=== PATIENT | female | born 1950 | race Caucasian/White ===

== ENCOUNTER 2017-01-31 11:26 | Inpatient (IN) ==
[2017-01-31] MEDS ORDERED: FUROSEMIDE 100 MG/10 ML VIAL IV STA (12:45)
[2017-01-31] MEDS ORDERED: ALBUTEROL/IPRATROPIUM 3 ML NEB RESP TX STA (12:45)
[2017-01-31] MEDS ORDERED: ONDANSETRON 4 MG/2 ML VIAL IV STA (12:45)
[2017-01-31] MEDS ORDERED: NITROGLYCERIN 2% OINT 1 INCH/GM PACK TOP STA (12:45)
[2017-01-31] MEDS ORDERED: MORPHINE 2 MG/1 ML SYRINGE IV STA (12:45)
[2017-01-31 13:13] LABS: Basophils # 0.1 10*3/uL (0.0-0.2); Basophils % 0.6 % (0.0-0.8); Eosinophils # 0.3 10*3/uL (0.0-0.87); Eosinophils % 3.1 % (0.00-10.9); Hematocrit 32.5 VOL% (35.7-47.0); Hemoglobin 10.7 GM/DL (12.0-16.0); Immature Granulocytes % 0.5 %; Immature Granulocytes Absolute 0.04 #; Lymphocytes # 2.9 10*3/uL (1.4-4.0); Lymphocytes % 32.6 % (21.3-54.2); Mean Corpuscular HGB Conc 32.9 GM/DL (32-36); Mean Corpuscular Hemoglobin 29 PG (27-34); Mean Corpuscular Volume 88.1 FL (87-102); Mean Platelet Volume 10.4 FL (9.6-12.0); Monocytes # 0.5 10*3/uL (0.11-0.8); Monocytes % 5.8 % (1.7-12.7); Neutrophils # 5.1 10*3/uL (1.4-7.4); Neutrophils % 57.4 % (38.7-73.9); Platelet Count 204 T/CUMM (130-400); Red Blood Count 3.69 MC/CUMM (3.8-5.5); Red Cell Distribution Width 14.5 % (9.3-17.3); White Blood Count 8.8 T/CUMM (4-12)
[2017-01-31 13:19] LABS: PT Patient Result 10.7 SECS
[2017-01-31] MEDS ORDERED: MORPHINE 2 MG/1 ML SYRINGE ONE (13:42)
[2017-01-31] MEDS ORDERED: NITROGLYCERIN 2% OINT 1 INCH/GM PACK TOP ONE (13:42)
[2017-01-31] MEDS ORDERED: FUROSEMIDE 20 MG/2 ML VIAL ONE (13:42)
[2017-01-31] MEDS ORDERED: ONDANSETRON 4 MG/2 ML VIAL ONE (13:42)
[2017-01-31 13:43] LABS: Albumin 3.7 G/DL (3.4-5.0); Bilirubin,Total 0.5 MG/DL (0.2-1.0); Calcium 8.8 MG/DL (8.5-10.1); Magnesium 2.4 MG/DL (1.8-2.4); Osmolality,Calculated 302.4 MOS/KG (273-304); Potassium 4.8 MMOL/L (3.5-5.1); Total Protein 6.6 G/DL (6.4-8.3); Troponin I Only 0.02 NG/ML (0.00-0.045)
[2017-01-31] MEDS ORDERED: ONDANSETRON 4 MG/2 ML VIAL IV PRN (14:39)
[2017-01-31] MEDS ORDERED: diphenhydrAMINE CAP 25 MG CAPSULE PO PRN (14:39)
[2017-01-31] MEDS ORDERED: DOCUSATE SODIUM 100 MG CAPSULE PO PRN (14:39)
[2017-01-31] MEDS ORDERED: ACETAMINOPHEN 325 MG TABLET PO PRN (14:39)
[2017-01-31] MEDS ORDERED: MORPHINE 2 MG/1 ML SYRINGE IV PRN (14:39)
[2017-01-31] MEDS ORDERED: guaiFENesin/DM ER 600-30 MG TABLET PO PRN (14:39)
[2017-01-31] MEDS ORDERED: GLUCAGON 1 MG VIAL IM PRN (14:59)
[2017-01-31] MEDS ORDERED: DEXTROSE 50% 25 GM/50 ML VIAL IV PRN (14:59)
[2017-01-31] MEDS ORDERED: PANTOPRAZOLE 40 MG TABLET PO ONE (15:14)
[2017-01-31] MEDS: PANTOPRAZOLE 40 MG TABLET PO SCH (15:16)
[2017-01-31] MEDS ORDERED: AZITHROMYCIN 250 MG TABLET ONE (17:03)
[2017-01-31] MEDS: AZITHROMYCIN 250 MG TABLET PO SCH (17:05)
[2017-01-31] MEDS: SEVELAMER CARBONATE 800 MG TABLET PO SCH (18:44)
[2017-01-31] MEDS: INSULIN LISPRO 100 UNIT/ML SUBCUT SCH (18:44)
[2017-01-31] MEDS: NEBIVOLOL 5 MG TABLET PO SCH (18:44)
[2017-01-31] MEDS: ASPIRIN EC 81 MG TABLET PO SCH (18:44)
[2017-01-31] MEDS: predniSONE 50 MG TABLET PO SCH ×2 (18:45→23:05)
[2017-01-31] MEDS ORDERED: NIFEdipine 10 MG CAPSULE PO PRN (18:49)
[2017-01-31] MEDS ORDERED: hydrALAZINE 25 MG TABLET PO PRN (19:43)
[2017-01-31] MEDS: ATORVASTATIN 20 MG TABLET PO SCH (20:23)
[2017-01-31] MEDS: ESCITALOPRAM 10 MG TABLET PO SCH (20:23)
[2017-01-31] MEDS: ENOXAPARIN 30 MG/0.3 ML SYRINGE SUBCUT SCH (20:24)
[2017-02-01] MEDS ORDERED: diphenhydrAMINE CAP 50 MG CAPSULE PO ONE (06:00)
[2017-02-01 06:09] LABS: Basophils % 0.4 % (0.0-0.8); Eosinophils % 0.2 % (0.00-10.9); Hematocrit 33.8 VOL% (35.7-47.0); Hemoglobin 10.9 GM/DL (12.0-16.0); Immature Granulocytes % 1.9 %; Lymphocytes # 0.9 10*3/uL (1.4-4.0); Lymphocytes % 17.9 % (21.3-54.2); Mean Corpuscular HGB Conc 32.2 GM/DL (32-36); Mean Corpuscular Hemoglobin 28 PG (27-34); Mean Corpuscular Volume 87.3 FL (87-102); Mean Platelet Volume 10.8 FL (9.6-12.0); Monocytes # 0.1 10*3/uL (0.11-0.8); Monocytes % 1.1 % (1.7-12.7); Neutrophils # 4.1 10*3/uL (1.4-7.4); Neutrophils % 78.5 % (38.7-73.9); Platelet Count 187 T/CUMM (130-400); Red Blood Count 3.87 MC/CUMM (3.8-5.5); Red Cell Distribution Width 14.6 % (9.3-17.3); White Blood Count 5.2 T/CUMM (4-12)
[2017-02-01] MEDS: predniSONE 50 MG TABLET PO SCH (06:31)
[2017-02-01 06:43] LABS: Calcium 8.6 MG/DL (8.5-10.1); Magnesium 2.5 MG/DL (1.8-2.4); Osmolality,Calculated 310.4 MOS/KG (273-304)
[2017-02-01 06:47] LABS: Potassium 6.3 MMOL/L (3.5-5.1)
[2017-02-01] MEDS ORDERED: SODIUM POLYSTYRENE SULFATE 15 GM/60 ML BOTTLE RECTAL ONE (07:00)
[2017-02-01] MEDS ORDERED: SODIUM CHLORIDE 0.45% 1,000 ML IV SCH (08:00)
[2017-02-01] MEDS ORDERED: amLODIPine 10 MG TABLET PO SCH (09:00)
[2017-02-01] MEDS ORDERED: HEPARIN 5,000 UNIT/1 ML VIAL ONE (09:32)
[2017-02-01] MEDS: SEVELAMER CARBONATE 800 MG TABLET PO SCH ×3 (11:42→18:43)
[2017-02-01] MEDS: INSULIN LISPRO 100 UNIT/ML SUBCUT SCH ×2 (11:42→16:12)
[2017-02-01] MEDS: DOCUSATE/SENNA 50-8.6 MG TABLET PO SCH (11:57)
[2017-02-01] MEDS: MULTIVITAMIN (CENTRUM) TABLET PO SCH (11:57)
[2017-02-01] MEDS: PANTOPRAZOLE 40 MG TABLET PO SCH (11:57)
[2017-02-01] MEDS: AZITHROMYCIN 250 MG TABLET PO SCH (11:58)
[2017-02-01] MEDS: NEBIVOLOL 5 MG TABLET PO SCH (18:43)
[2017-02-01] MEDS: ASPIRIN EC 81 MG TABLET PO SCH (18:43)
[2017-02-01] MEDS: ATORVASTATIN 20 MG TABLET PO SCH (20:44)
[2017-02-01] MEDS: ESCITALOPRAM 10 MG TABLET PO SCH (20:44)
[2017-02-01] MEDS: ENOXAPARIN 30 MG/0.3 ML SYRINGE SUBCUT SCH (20:45)
[2017-02-02] MEDS: INSULIN LISPRO 100 UNIT/ML SUBCUT SCH (08:12)
[2017-02-02] MEDS: SEVELAMER CARBONATE 800 MG TABLET PO SCH ×2 (10:47→12:45)
[2017-02-02] MEDS: MULTIVITAMIN (CENTRUM) TABLET PO SCH (10:47)
[2017-02-02] MEDS: AZITHROMYCIN 250 MG TABLET PO SCH (10:48)
[2017-02-02] MEDS: DOCUSATE/SENNA 50-8.6 MG TABLET PO SCH (10:48)
[2017-02-02] MEDS: PANTOPRAZOLE 40 MG TABLET PO SCH (10:48)
[2017-02-02 15:10] VITALS: BP 183/68
== END 2017-02-02 15:00 | disposition home or self-care (01) | DRG 252 ==
LOC: N.ED 11:26 → N.EDINP 14:17 → N.5E 18:06

== ENCOUNTER 2018-04-01 13:42 | Inpatient (IN) ==
[2018-04-01 14:56] LABS: Basophils # 0.1 10*3/uL (0.0-0.2); Basophils % 0.8 % (0.0-0.8); Eosinophils # 0.3 10*3/uL (0.0-0.87); Eosinophils % 4.1 % (0.00-10.9); Hematocrit 29.5 VOL% (35.7-47.0); Hemoglobin 9.2 GM/DL (12.0-16.0); Immature Granulocytes % 0.5 %; Immature Granulocytes Absolute 0.03 #; Lymphocytes # 1.1 10*3/uL (1.4-4.0); Lymphocytes % 17.6 % (21.3-54.2); Mean Corpuscular HGB Conc 31.2 GM/DL (32-36); Mean Corpuscular Hemoglobin 29 PG (27-34); Mean Corpuscular Volume 93.7 FL (87-102); Mean Platelet Volume 11.5 FL (9.6-12.0); Monocytes # 0.6 10*3/uL (0.11-0.8); Monocytes % 8.9 % (1.7-12.7); Neutrophils # 4.3 10*3/uL (1.4-7.4); Neutrophils % 68.1 % (38.7-73.9); Platelet Count 107 T/CUMM (130-400); Red Blood Count 3.15 MC/CUMM (3.8-5.5); Red Cell Distribution Width 17.6 % (9.3-17.3); White Blood Count 6.3 T/CUMM (4-12)
[2018-04-01 15:17] LABS: Albumin 3.6 G/DL (3.4-5.0); Calcium 9.2 MG/DL (8.5-10.1); Potassium 4.3 MMOL/L (3.5-5.1); Total Protein 7.5 G/DL (6.4-8.3)
[2018-04-01] MEDS ORDERED: CEFTAROLINE 600 MG in SODIUM CHLORIDE 0.9% 100 ML IV STA (15:27)
[2018-04-01] MEDS ORDERED: ACETAMINOPHEN 325 MG TABLET PO PRN (16:04)
[2018-04-01] MEDS ORDERED: ONDANSETRON 4 MG/2 ML VIAL IV PRN (16:04)
[2018-04-01] MEDS ORDERED: DEXTROSE 50% 25 GM/50 ML VIAL IV PRN ×2 (16:04)
[2018-04-01] MEDS ORDERED: GLUCAGON 1 MG VIAL IM PRN ×2 (16:04)
[2018-04-01] MEDS ORDERED: DOCUSATE/SENNA 50-8.6 MG TABLET PO PRN (16:13)
[2018-04-01] MEDS ORDERED: POLYETHYLENE GLYCOL POWDER 17 GM PACK PO PRN (16:13)
[2018-04-01] MEDS ORDERED: EPOETIN ALFA 10,000 UNIT/1 ML VIAL IV PRN (16:13)
[2018-04-01] MEDS ORDERED: ONDANSETRON 4 MG TABLET PO PRN (16:13)
[2018-04-01] MEDS ORDERED: hydrALAZINE 20 MG/1 ML VIAL IV STA (16:43)
[2018-04-01] MEDS: INSULIN REGULAR 100 UNIT/ML SUBCUT SCH ×2 (18:45→20:57)
[2018-04-01] MEDS: SEVELAMER CARBONATE 800 MG TABLET PO SCH (19:00)
[2018-04-01] MEDS: NEBIVOLOL 5 MG TABLET PO SCH (20:54)
[2018-04-01] MEDS: ATORVASTATIN 20 MG TABLET PO SCH (20:55)
[2018-04-01] MEDS: ASPIRIN EC 81 MG TABLET PO SCH (20:55)
[2018-04-01] MEDS: ESCITALOPRAM 10 MG TABLET PO SCH (20:55)
[2018-04-02] MEDS ORDERED: CEFTAROLINE 200 MG in SODIUM CHLORIDE 0.9% 100 ML IV SCH (04:00)
[2018-04-02 05:02] LABS: Basophils % 0.8 % (0.0-0.8); Eosinophils # 0.4 10*3/uL (0.0-0.87); Eosinophils % 7.4 % (0.00-10.9); Hematocrit 29.3 VOL% (35.7-47.0); Immature Granulocytes % 0.6 %; Immature Granulocytes Absolute 0.03 #; Lymphocytes # 0.9 10*3/uL (1.4-4.0); Lymphocytes % 18.2 % (21.3-54.2); Mean Corpuscular HGB Conc 30.7 GM/DL (32-36); Mean Corpuscular Hemoglobin 29 PG (27-34); Mean Corpuscular Volume 94.8 FL (87-102); Mean Platelet Volume 11.6 FL (9.6-12.0); Monocytes # 0.4 10*3/uL (0.11-0.8); Monocytes % 8.9 % (1.7-12.7); Neutrophils % 64.1 % (38.7-73.9); Platelet Count 104 T/CUMM (130-400); Red Blood Count 3.09 MC/CUMM (3.8-5.5); Red Cell Distribution Width 17.9 % (9.3-17.3); White Blood Count 4.7 T/CUMM (4-12)
[2018-04-02 05:32] LABS: Albumin 3.4 G/DL (3.4-5.0); Bilirubin,Total 0.8 MG/DL (0.2-1.0); Osmolality,Calculated 286.7 MOS/KG (273-304); Potassium 4.6 MMOL/L (3.5-5.1); Total Protein 6.8 G/DL (6.4-8.3)
[2018-04-02] MEDS: INSULIN REGULAR 100 UNIT/ML SUBCUT SCH ×4 (07:57→21:43)
[2018-04-02] MEDS: PANTOPRAZOLE 40 MG TABLET PO SCH (08:35)
[2018-04-02] MEDS ORDERED: amLODIPine 5 MG TABLET PO SCH (09:00)
[2018-04-02] MEDS: hydrALAZINE 25 MG TABLET PO SCH ×4 (10:31→21:43)
[2018-04-02] MEDS ORDERED: ceFAZolin 1,000 MG in SYRINGE 1 EACH IV ONE (11:00)
[2018-04-02] MEDS: SEVELAMER CARBONATE 800 MG TABLET PO SCH ×3 (11:59→18:59)
[2018-04-02] MEDS: MULTIVITAMIN (BEROCCA) TABLET PO SCH (12:00)
[2018-04-02] MEDS ORDERED: HEPARIN 5,000 UNIT/1 ML VIAL ONE (12:46)
[2018-04-02] MEDS ORDERED: LIDOCAINE 1%/EPI INJ 20 ML VIAL ONE (12:46)
[2018-04-02] MEDS ORDERED: PROPOFOL 200 MG/20 ML VIAL IV ONE (14:32)
[2018-04-02] MEDS ORDERED: MIDAZOLAM 2 MG/2 ML VIAL ONE (14:33)
[2018-04-02] MEDS ORDERED: fentaNYL 100 MCG/2 ML VIAL ONE (14:33)
[2018-04-02] MEDS ORDERED: SODIUM CHLORIDE 0.9% 250 ML IV ONE (14:34)
[2018-04-02] MEDS ORDERED: KETAMINE 500 MG/10 ML VIAL ONE (14:34)
[2018-04-02] MEDS ORDERED: TUBERCULIN SKIN TEST 0.1 ML SYRINGE INTRADERM ONE (17:09)
[2018-04-02] MEDS: ATORVASTATIN 20 MG TABLET PO SCH (21:43)
[2018-04-02] MEDS: ASPIRIN EC 81 MG TABLET PO SCH (21:43)
[2018-04-02] MEDS: ESCITALOPRAM 10 MG TABLET PO SCH (21:43)
[2018-04-02] MEDS: NEBIVOLOL 5 MG TABLET PO SCH (21:43)
[2018-04-03] MEDS ORDERED: hydrALAZINE 20 MG/1 ML VIAL IV PRN (01:08)
[2018-04-03] MEDS ORDERED: ACETAMINOPHEN 650 MG SUPP RECTAL PRN (04:18)
[2018-04-03 06:50] LABS: Basophils % 0.4 % (0.0-0.8); Hemoglobin 8.4 GM/DL (12.0-16.0); Immature Granulocytes % 1.1 %; Immature Granulocytes Absolute 0.06 #; Lymphocytes # 0.8 10*3/uL (1.4-4.0); Lymphocytes % 13.7 % (21.3-54.2); Mean Corpuscular HGB Conc 31.1 GM/DL (32-36); Mean Corpuscular Hemoglobin 29 PG (27-34); Mean Corpuscular Volume 94.1 FL (87-102); Mean Platelet Volume 11.7 FL (9.6-12.0); Monocytes # 0.3 10*3/uL (0.11-0.8); Monocytes % 5.1 % (1.7-12.7); Neutrophils # 4.5 10*3/uL (1.4-7.4); Neutrophils % 79.7 % (38.7-73.9); Platelet Count 113 T/CUMM (130-400); Red Blood Count 2.87 MC/CUMM (3.8-5.5); Red Cell Distribution Width 17.6 % (9.3-17.3); White Blood Count 5.6 T/CUMM (4-12)
[2018-04-03] MEDS ORDERED: VANCOMYCIN INJ 2,500 MG in SODIUM CHLORIDE 0.9% 500 ML IV ONE (09:00)
[2018-04-03] MEDS: PIPERACILLIN/TAZOBACTAM 3,375 MG in SODIUM CHLORIDE 0.9% 100 ML IV SCH ×3 (10:27→23:31)
[2018-04-03] MEDS ORDERED: cloNIDine 0.2 MG/24 HR PATCH TRANSDERM SCH (10:30)
[2018-04-03] MEDS: SEVELAMER CARBONATE 800 MG TABLET PO SCH ×3 (10:34→17:36)
[2018-04-03] MEDS: MULTIVITAMIN (BEROCCA) TABLET PO SCH (10:34)
[2018-04-03] MEDS: hydrALAZINE 25 MG TABLET PO SCH ×4 (10:34→21:39)
[2018-04-03] MEDS: amLODIPine 10 MG TABLET PO SCH (10:34)
[2018-04-03] MEDS: INSULIN REGULAR 100 UNIT/ML SUBCUT SCH ×4 (10:34→21:42)
[2018-04-03] MEDS: PANTOPRAZOLE 40 MG TABLET PO SCH (10:34)
[2018-04-03 10:36] LABS: Calcium 8.2 MG/DL (8.5-10.1); Osmolality,Calculated 293.8 MOS/KG (273-304)
[2018-04-03] MEDS ORDERED: HEPARIN 10,000 UNIT/10 ML VIAL IV PRN (16:09)
[2018-04-03] MEDS: NEBIVOLOL 5 MG TABLET PO SCH (21:39)
[2018-04-03] MEDS: ESCITALOPRAM 10 MG TABLET PO SCH (21:39)
[2018-04-03] MEDS: ATORVASTATIN 20 MG TABLET PO SCH (21:39)
[2018-04-03] MEDS: ASPIRIN EC 81 MG TABLET PO SCH (21:39)
[2018-04-04] MEDS ORDERED: VANCOMYCIN INJ 750 MG in SODIUM CHLORIDE 0.9% 250 ML IV PRN (07:53)
[2018-04-04] MEDS: SEVELAMER CARBONATE 800 MG TABLET PO SCH ×3 (10:38→18:18)
[2018-04-04] MEDS: INSULIN REGULAR 100 UNIT/ML SUBCUT SCH ×4 (10:38→21:33)
[2018-04-04] MEDS: PANTOPRAZOLE 40 MG TABLET PO SCH (10:38)
[2018-04-04] MEDS: MULTIVITAMIN (BEROCCA) TABLET PO SCH (10:38)
[2018-04-04] MEDS: hydrALAZINE 25 MG TABLET PO SCH ×6 (10:38→21:28)
[2018-04-04] MEDS: amLODIPine 10 MG TABLET PO SCH (10:39)
[2018-04-04] MEDS: PIPERACILLIN/TAZOBACTAM 3,375 MG in SODIUM CHLORIDE 0.9% 100 ML IV SCH ×2 (10:42→21:32)
[2018-04-04] MEDS: ASPIRIN EC 81 MG TABLET PO SCH (21:28)
[2018-04-04] MEDS: ESCITALOPRAM 10 MG TABLET PO SCH (21:28)
[2018-04-04] MEDS: ATORVASTATIN 20 MG TABLET PO SCH (21:28)
[2018-04-04] MEDS: NEBIVOLOL 5 MG TABLET PO SCH (21:28)
[2018-04-05 05:43] LABS: Basophils % 0.9 % (0.0-0.8); Eosinophils # 0.4 10*3/uL (0.0-0.87); Eosinophils % 7.7 % (0.00-10.9); Hematocrit 27.2 VOL% (35.7-47.0); Hemoglobin 8.4 GM/DL (12.0-16.0); Immature Granulocytes % 0.4 %; Immature Granulocytes Absolute 0.02 #; Lymphocytes # 0.9 10*3/uL (1.4-4.0); Lymphocytes % 18.4 % (21.3-54.2); Mean Corpuscular HGB Conc 30.9 GM/DL (32-36); Mean Corpuscular Hemoglobin 29 PG (27-34); Mean Corpuscular Volume 93.5 FL (87-102); Mean Platelet Volume 11.5 FL (9.6-12.0); Monocytes # 0.5 10*3/uL (0.11-0.8); Monocytes % 9.6 % (1.7-12.7); Platelet Count 116 T/CUMM (130-400); Red Blood Count 2.91 MC/CUMM (3.8-5.5); Red Cell Distribution Width 16.8 % (9.3-17.3); White Blood Count 4.7 T/CUMM (4-12)
[2018-04-05 06:04] LABS: Calcium 8.2 MG/DL (8.5-10.1); Osmolality,Calculated 285.4 MOS/KG (273-304); Potassium 5.1 MMOL/L (3.5-5.1)
[2018-04-05] MEDS: SEVELAMER CARBONATE 800 MG TABLET PO SCH ×3 (08:30→17:19)
[2018-04-05] MEDS: amLODIPine 10 MG TABLET PO SCH (08:30)
[2018-04-05] MEDS: PIPERACILLIN/TAZOBACTAM 3,375 MG in SODIUM CHLORIDE 0.9% 100 ML IV SCH ×2 (08:30→22:18)
[2018-04-05] MEDS: INSULIN REGULAR 100 UNIT/ML SUBCUT SCH ×4 (08:30→22:14)
[2018-04-05] MEDS: MULTIVITAMIN (BEROCCA) TABLET PO SCH (08:30)
[2018-04-05] MEDS: PANTOPRAZOLE 40 MG TABLET PO SCH (08:30)
[2018-04-05] MEDS: hydrALAZINE 25 MG TABLET PO SCH ×3 (08:30→22:13)
[2018-04-05] MEDS ORDERED: VANCOMYCIN INJ 750 MG in SODIUM CHLORIDE 0.9% 250 ML IV ONE (15:00)
[2018-04-05] MEDS: NEBIVOLOL 5 MG TABLET PO SCH (22:13)
[2018-04-05] MEDS: ESCITALOPRAM 10 MG TABLET PO SCH (22:13)
[2018-04-05] MEDS: ASPIRIN EC 81 MG TABLET PO SCH (22:13)
[2018-04-05] MEDS: ATORVASTATIN 20 MG TABLET PO SCH (22:13)
[2018-04-06 05:35] LABS: Basophils % 0.6 % (0.0-0.8); Eosinophils # 0.3 10*3/uL (0.0-0.87); Eosinophils % 6.1 % (0.00-10.9); Hematocrit 27.1 VOL% (35.7-47.0); Hemoglobin 8.5 GM/DL (12.0-16.0); Immature Granulocytes % 0.6 %; Immature Granulocytes Absolute 0.03 #; Lymphocytes # 0.8 10*3/uL (1.4-4.0); Lymphocytes % 15.9 % (21.3-54.2); Mean Corpuscular HGB Conc 31.4 GM/DL (32-36); Mean Corpuscular Hemoglobin 29 PG (27-34); Mean Corpuscular Volume 92.2 FL (87-102); Mean Platelet Volume 11.2 FL (9.6-12.0); Monocytes # 0.5 10*3/uL (0.11-0.8); Monocytes % 9.1 % (1.7-12.7); Neutrophils # 3.3 10*3/uL (1.4-7.4); Neutrophils % 67.7 % (38.7-73.9); Platelet Count 119 T/CUMM (130-400); Red Blood Count 2.94 MC/CUMM (3.8-5.5); Red Cell Distribution Width 16.5 % (9.3-17.3); White Blood Count 4.9 T/CUMM (4-12)
[2018-04-06 05:57] LABS: Calcium 8.4 MG/DL (8.5-10.1); Osmolality,Calculated 278.4 MOS/KG (273-304); Potassium 4.3 MMOL/L (3.5-5.1)
[2018-04-06] MEDS: SEVELAMER CARBONATE 800 MG TABLET PO SCH ×3 (09:20→16:53)
[2018-04-06] MEDS: MULTIVITAMIN (BEROCCA) TABLET PO SCH (09:21)
[2018-04-06] MEDS: PANTOPRAZOLE 40 MG TABLET PO SCH (09:21)
[2018-04-06] MEDS: amLODIPine 10 MG TABLET PO SCH (09:21)
[2018-04-06] MEDS: INSULIN REGULAR 100 UNIT/ML SUBCUT SCH ×4 (09:21→22:10)
[2018-04-06] MEDS: PIPERACILLIN/TAZOBACTAM 3,375 MG in SODIUM CHLORIDE 0.9% 100 ML IV SCH ×2 (09:21→17:58)
[2018-04-06] MEDS: hydrALAZINE 25 MG TABLET PO SCH (09:21)
[2018-04-06] MEDS ORDERED: LEVOFLOXACIN 500 MG TABLET PO SCH (17:00)
[2018-04-06] MEDS: ESCITALOPRAM 10 MG TABLET PO SCH (22:07)
[2018-04-06] MEDS: NEBIVOLOL 5 MG TABLET PO SCH (22:07)
[2018-04-06] MEDS: ATORVASTATIN 20 MG TABLET PO SCH (22:07)
[2018-04-06] MEDS: ASPIRIN EC 81 MG TABLET PO SCH (22:10)
[2018-04-07] MEDS: PIPERACILLIN/TAZOBACTAM 3,375 MG in SODIUM CHLORIDE 0.9% 100 ML IV SCH ×3 (00:09→22:16)
[2018-04-07 05:27] LABS: Basophils % 0.6 % (0.0-0.8); Eosinophils # 0.3 10*3/uL (0.0-0.87); Eosinophils % 4.6 % (0.00-10.9); Hematocrit 26.3 VOL% (35.7-47.0); Hemoglobin 8.4 GM/DL (12.0-16.0); Immature Granulocytes % 0.4 %; Immature Granulocytes Absolute 0.02 #; Lymphocytes # 0.9 10*3/uL (1.4-4.0); Lymphocytes % 15.7 % (21.3-54.2); Mean Corpuscular HGB Conc 31.9 GM/DL (32-36); Mean Corpuscular Hemoglobin 29 PG (27-34); Mean Platelet Volume 11.2 FL (9.6-12.0); Monocytes # 0.5 10*3/uL (0.11-0.8); Monocytes % 8.5 % (1.7-12.7); Neutrophils # 3.8 10*3/uL (1.4-7.4); Neutrophils % 70.2 % (38.7-73.9); Platelet Count 120 T/CUMM (130-400); Red Blood Count 2.86 MC/CUMM (3.8-5.5); Red Cell Distribution Width 16.2 % (9.3-17.3); White Blood Count 5.4 T/CUMM (4-12)
[2018-04-07 05:45] LABS: Calcium 8.4 MG/DL (8.5-10.1); Osmolality,Calculated 277.7 MOS/KG (273-304); Potassium 4.6 MMOL/L (3.5-5.1)
[2018-04-07] MEDS ORDERED: FAMOTIDINE 20 MG/2 ML VIAL IV ONE ×2 (08:36→08:38)
[2018-04-07] MEDS ORDERED: LIDOCAINE 1%/EPI INJ 20 ML VIAL ONE (08:38)
[2018-04-07] MEDS ORDERED: SODIUM CHLORIDE 0.9% 250 ML IV SCH (09:00)
[2018-04-07] MEDS ORDERED: TUBERCULIN SKIN TEST 0.1 ML SYRINGE INTRADERM ONE (09:15)
[2018-04-07] MEDS ORDERED: PROPOFOL 200 MG/20 ML VIAL IV ONE (09:45)
[2018-04-07] MEDS ORDERED: fentaNYL 100 MCG/2 ML VIAL ONE (09:46)
[2018-04-07] MEDS ORDERED: MIDAZOLAM 2 MG/2 ML VIAL ONE (09:46)
[2018-04-07] MEDS ORDERED: SODIUM CHLORIDE 0.9% 100 ML IV ONE (09:46)
[2018-04-07] MEDS ORDERED: ONDANSETRON 4 MG/2 ML VIAL ONE (09:46)
[2018-04-07] MEDS ORDERED: LISINOPRIL 10 MG TABLET PO SCH (12:00)
[2018-04-07] MEDS: INSULIN REGULAR 100 UNIT/ML SUBCUT SCH ×4 (12:01→22:16)
[2018-04-07] MEDS: PANTOPRAZOLE 40 MG TABLET PO SCH (12:14)
[2018-04-07] MEDS: MULTIVITAMIN (BEROCCA) TABLET PO SCH (12:14)
[2018-04-07] MEDS: amLODIPine 10 MG TABLET PO SCH (12:14)
[2018-04-07] MEDS: SEVELAMER CARBONATE 800 MG TABLET PO SCH ×3 (12:17→16:53)
[2018-04-07] MEDS: DOXAZOSIN 1 MG TABLET PO SCH (22:14)
[2018-04-07] MEDS: NEBIVOLOL 5 MG TABLET PO SCH (22:15)
[2018-04-07] MEDS: ESCITALOPRAM 10 MG TABLET PO SCH (22:15)
[2018-04-07] MEDS: ASPIRIN EC 81 MG TABLET PO SCH (22:15)
[2018-04-07] MEDS: ATORVASTATIN 20 MG TABLET PO SCH (22:15)
[2018-04-07] MEDS: LISINOPRIL 10 MG TABLET PO SCH (22:16)
[2018-04-08 05:12] LABS: Basophils % 0.5 % (0.0-0.8); Eosinophils # 0.3 10*3/uL (0.0-0.87); Eosinophils % 4.9 % (0.00-10.9); Hematocrit 25.6 VOL% (35.7-47.0); Immature Granulocytes % 0.3 %; Immature Granulocytes Absolute 0.02 #; Lymphocytes # 0.9 10*3/uL (1.4-4.0); Lymphocytes % 14.7 % (21.3-54.2); Mean Corpuscular HGB Conc 31.3 GM/DL (32-36); Mean Corpuscular Hemoglobin 29 PG (27-34); Mean Corpuscular Volume 93.1 FL (87-102); Mean Platelet Volume 11.6 FL (9.6-12.0); Monocytes # 0.5 10*3/uL (0.11-0.8); Monocytes % 8.6 % (1.7-12.7); Neutrophils # 4.3 10*3/uL (1.4-7.4); Platelet Count 117 T/CUMM (130-400); Red Blood Count 2.75 MC/CUMM (3.8-5.5); Red Cell Distribution Width 16.5 % (9.3-17.3); White Blood Count 6.1 T/CUMM (4-12)
[2018-04-08 05:42] LABS: Calcium 8.8 MG/DL (8.5-10.1); Osmolality,Calculated 281.5 MOS/KG (273-304); Potassium 5.2 MMOL/L (3.5-5.1)
[2018-04-08] MEDS: INSULIN REGULAR 100 UNIT/ML SUBCUT SCH ×4 (08:39→21:39)
[2018-04-08] MEDS: PANTOPRAZOLE 40 MG TABLET PO SCH (08:40)
[2018-04-08] MEDS: SEVELAMER CARBONATE 800 MG TABLET PO SCH ×3 (08:40→16:17)
[2018-04-08] MEDS: MULTIVITAMIN (BEROCCA) TABLET PO SCH (08:40)
[2018-04-08] MEDS: amLODIPine 10 MG TABLET PO SCH (12:48)
[2018-04-08] MEDS: PIPERACILLIN/TAZOBACTAM 3,375 MG in SODIUM CHLORIDE 0.9% 100 ML IV SCH (12:50)
[2018-04-08] MEDS: DOXAZOSIN 1 MG TABLET PO SCH ×2 (13:27→21:38)
[2018-04-08] MEDS: LISINOPRIL 10 MG TABLET PO SCH (13:27)
[2018-04-08] MEDS ORDERED: VANCOMYCIN INJ 750 MG in SODIUM CHLORIDE 0.9% 250 ML IV ONE (14:00)
[2018-04-08] MEDS: ASPIRIN EC 81 MG TABLET PO SCH (21:39)
[2018-04-08] MEDS: NEBIVOLOL 5 MG TABLET PO SCH (21:39)
[2018-04-08] MEDS: ATORVASTATIN 20 MG TABLET PO SCH (21:39)
[2018-04-08] MEDS: ESCITALOPRAM 10 MG TABLET PO SCH (21:39)
[2018-04-09 05:44] LABS: Basophils % 0.4 % (0.0-0.8); Eosinophils # 0.2 10*3/uL (0.0-0.87); Eosinophils % 4.1 % (0.00-10.9); Hematocrit 27.2 VOL% (35.7-47.0); Hemoglobin 8.3 GM/DL (12.0-16.0); Immature Granulocytes % 0.5 %; Immature Granulocytes Absolute 0.03 #; Lymphocytes # 0.8 10*3/uL (1.4-4.0); Lymphocytes % 13.7 % (21.3-54.2); Mean Corpuscular HGB Conc 30.5 GM/DL (32-36); Mean Corpuscular Hemoglobin 29 PG (27-34); Mean Corpuscular Volume 94.4 FL (87-102); Mean Platelet Volume 11.7 FL (9.6-12.0); Monocytes # 0.5 10*3/uL (0.11-0.8); Monocytes % 8.8 % (1.7-12.7); Neutrophils % 72.5 % (38.7-73.9); Platelet Count 122 T/CUMM (130-400); Red Blood Count 2.88 MC/CUMM (3.8-5.5); Red Cell Distribution Width 16.4 % (9.3-17.3); White Blood Count 5.6 T/CUMM (4-12)
[2018-04-09 06:06] LABS: Calcium 8.5 MG/DL (8.5-10.1); Osmolality,Calculated 284.1 MOS/KG (273-304); Potassium 4.6 MMOL/L (3.5-5.1)
[2018-04-09] MEDS: INSULIN REGULAR 100 UNIT/ML SUBCUT SCH (09:31)
[2018-04-09] MEDS: PANTOPRAZOLE 40 MG TABLET PO SCH (09:33)
[2018-04-09] MEDS: amLODIPine 10 MG TABLET PO SCH (09:33)
[2018-04-09] MEDS: SEVELAMER CARBONATE 800 MG TABLET PO SCH (09:33)
[2018-04-09] MEDS: DOXAZOSIN 1 MG TABLET PO SCH (09:33)
[2018-04-09] MEDS: MULTIVITAMIN (BEROCCA) TABLET PO SCH (09:33)
[2018-04-09] MEDS ORDERED: ALUM/MAG/SIMETH/LIDO VISC 1:1 30 ML BOTTLE PO ONE (11:05)
[2018-04-09 11:57] VITALS: BP 144/71
== END 2018-04-09 12:28 | DRG 252 ==
LOC: EDUNIT# → N.ED 13:42 → N.EDINP 15:33 → N.2E 16:46
PROVIDERS: ADMIT Hospitalist; ATTEND Hospitalist

== ENCOUNTER 2018-05-21 13:44 | Inpatient (IN) ==
[2018-05-21 14:39] LABS: Basophils % 0.5 % (0.0-0.8); Eosinophils # 0.3 10*3/uL (0.0-0.87); Eosinophils % 4.8 % (0.00-10.9); Hematocrit 35.8 VOL% (35.7-47.0); Hemoglobin 11.1 GM/DL (12.0-16.0); Immature Granulocytes % 0.7 %; Immature Granulocytes Absolute 0.04 #; Lymphocytes # 1.4 10*3/uL (1.4-4.0); Lymphocytes % 24.5 % (21.3-54.2); Mean Corpuscular Hemoglobin 29 PG (27-34); Mean Platelet Volume 10.4 FL (9.6-12.0); Monocytes # 0.5 10*3/uL (0.11-0.8); Monocytes % 8.4 % (1.7-12.7); Neutrophils # 3.6 10*3/uL (1.4-7.4); Neutrophils % 61.1 % (38.7-73.9); Platelet Count 138 T/CUMM (130-400); Red Blood Count 3.85 MC/CUMM (3.8-5.5); Red Cell Distribution Width 15.9 % (9.3-17.3); White Blood Count 5.8 T/CUMM (4-12)
[2018-05-21 14:48] LABS: PT Patient Result 10.7 SECS; Partial Thromboplastin Time 25.7 SECS (0-40)
[2018-05-21 14:59] LABS: Albumin 3.6 G/DL (3.4-5.0); Bilirubin,Total 0.5 MG/DL (0.2-1.0); Osmolality,Calculated 299.5 MOS/KG (273-304); Potassium 4.2 MMOL/L (3.5-5.1); Total Protein 7.1 G/DL (6.4-8.3)
[2018-05-21] MEDS ORDERED: diphenhydrAMINE 50 MG/1 ML VIAL IV STA (15:51)
[2018-05-21] MEDS ORDERED: ceFAZolin 1,000 MG in SYRINGE 1 EACH IV ONE (16:36)
[2018-05-21] MEDS ORDERED: ONDANSETRON 4 MG/2 ML VIAL IV PRN (16:56)
[2018-05-21] MEDS ORDERED: DEXTROSE 50% 25 GM/50 ML VIAL IV PRN (17:02)
[2018-05-21] MEDS ORDERED: GLUCAGON 1 MG VIAL IM PRN ×2 (17:02→18:35)
[2018-05-21] MEDS ORDERED: BUPIVACAINE 0.5% 50 ML VIAL ONE (17:35)
[2018-05-21] MEDS ORDERED: LIDOCAINE 1%/EPI INJ 20 ML VIAL ONE (17:35)
[2018-05-21] MEDS ORDERED: ceFAZolin 1,000 MG VIAL ONE (17:54)
[2018-05-21] MEDS ORDERED: MICROFIBRILLAR COLLAGEN POWDER 1 GM CAN TOP ONE ×2 (18:11→18:22)
[2018-05-21] MEDS ORDERED: DEXTROSE 50% 25 GM/50 ML SYRINGE IV PRN (18:35)
[2018-05-21] MEDS ORDERED: SEVOFLURANE 1 UNIT/15 MINUTE INH ONE (18:47)
[2018-05-21] MEDS ORDERED: PROPOFOL 200 MG/20 ML VIAL IV ONE (18:47)
[2018-05-21] MEDS ORDERED: SUCCINYLCHOLINE 200 MG/10 ML VIAL ONE (18:48)
[2018-05-21] MEDS ORDERED: fentaNYL 100 MCG/2 ML VIAL ONE (18:48)
[2018-05-21] MEDS ORDERED: ETOMIDATE 40 MG/20 ML VIAL IV ONE (18:48)
[2018-05-21] MEDS ORDERED: ONDANSETRON 4 MG/2 ML VIAL ONE (18:48)
[2018-05-21] MEDS: ATORVASTATIN 20 MG TABLET PO SCH (22:03)
[2018-05-21] MEDS: DOXAZOSIN 1 MG TABLET PO SCH (22:03)
[2018-05-21] MEDS: NEBIVOLOL 5 MG TABLET PO SCH (22:03)
[2018-05-21] MEDS: ESCITALOPRAM 10 MG TABLET PO SCH (22:03)
[2018-05-21] MEDS: INSULIN REGULAR 100 UNIT/ML SUBCUT SCH (22:11)
[2018-05-22 04:22] LABS: Basophils % 0.8 % (0.0-0.8); Eosinophils # 0.3 10*3/uL (0.0-0.87); Eosinophils % 7.1 % (0.00-10.9); Hematocrit 31.7 VOL% (35.7-47.0); Hemoglobin 9.5 GM/DL (12.0-16.0); Immature Granulocytes % 0.4 %; Immature Granulocytes Absolute 0.02 #; Lymphocytes # 1.1 10*3/uL (1.4-4.0); Lymphocytes % 23.9 % (21.3-54.2); Mean Corpuscular Hemoglobin 29 PG (27-34); Mean Corpuscular Volume 95.2 FL (87-102); Mean Platelet Volume 10.4 FL (9.6-12.0); Monocytes # 0.5 10*3/uL (0.11-0.8); Monocytes % 9.7 % (1.7-12.7); Neutrophils # 2.8 10*3/uL (1.4-7.4); Neutrophils % 58.1 % (38.7-73.9); Platelet Count 125 T/CUMM (130-400); Red Blood Count 3.33 MC/CUMM (3.8-5.5); White Blood Count 4.8 T/CUMM (4-12)
[2018-05-22 04:37] LABS: Calcium 8.6 MG/DL (8.5-10.1); Osmolality,Calculated 298.5 MOS/KG (273-304); Potassium 4.6 MMOL/L (3.5-5.1)
[2018-05-22] MEDS: SEVELAMER CARBONATE 800 MG TABLET PO SCH ×3 (08:49→17:43)
[2018-05-22] MEDS: DOXAZOSIN 1 MG TABLET PO SCH ×2 (08:49→21:34)
[2018-05-22] MEDS: PANTOPRAZOLE 40 MG TABLET PO SCH (08:50)
[2018-05-22] MEDS: amLODIPine 5 MG TABLET PO SCH (08:50)
[2018-05-22] MEDS: INSULIN REGULAR 100 UNIT/ML SUBCUT SCH ×4 (08:53→21:34)
[2018-05-22] MEDS ORDERED: HEPARIN 10,000 UNIT/10 ML VIAL IV SCH (10:30)
[2018-05-22] MEDS ORDERED: ONDANSETRON 4 MG TABLET PO PRN (13:57)
[2018-05-22] MEDS ORDERED: POLYETHYLENE GLYCOL POWDER 17 GM PACK PO PRN (13:57)
[2018-05-22] MEDS ORDERED: DOCUSATE/SENNA 50-8.6 MG TABLET PO PRN (13:57)
[2018-05-22] MEDS: ATORVASTATIN 20 MG TABLET PO SCH (21:34)
[2018-05-22] MEDS: ESCITALOPRAM 10 MG TABLET PO SCH (21:34)
[2018-05-22] MEDS: NEBIVOLOL 5 MG TABLET PO SCH (21:34)
[2018-05-23 06:59] LABS: Basophils % 0.8 % (0.0-0.8); Eosinophils # 0.3 10*3/uL (0.0-0.87); Eosinophils % 6.8 % (0.00-10.9); Hematocrit 30.8 VOL% (35.7-47.0); Hemoglobin 9.3 GM/DL (12.0-16.0); Immature Granulocytes % 0.4 %; Immature Granulocytes Absolute 0.02 #; Lymphocytes # 1.4 10*3/uL (1.4-4.0); Lymphocytes % 29.5 % (21.3-54.2); Mean Corpuscular HGB Conc 30.2 GM/DL (32-36); Mean Corpuscular Hemoglobin 29 PG (27-34); Mean Corpuscular Volume 95.7 FL (87-102); Mean Platelet Volume 10.9 FL (9.6-12.0); Monocytes # 0.5 10*3/uL (0.11-0.8); Monocytes % 10.3 % (1.7-12.7); Neutrophils # 2.5 10*3/uL (1.4-7.4); Neutrophils % 52.2 % (38.7-73.9); Platelet Count 127 T/CUMM (130-400); Red Blood Count 3.22 MC/CUMM (3.8-5.5); Red Cell Distribution Width 16.4 % (9.3-17.3); White Blood Count 4.7 T/CUMM (4-12)
[2018-05-23] MEDS: INSULIN REGULAR 100 UNIT/ML SUBCUT SCH (07:41)
[2018-05-23] MEDS: DOXAZOSIN 1 MG TABLET PO SCH (08:49)
[2018-05-23] MEDS: PANTOPRAZOLE 40 MG TABLET PO SCH (08:50)
[2018-05-23] MEDS: SEVELAMER CARBONATE 800 MG TABLET PO SCH (08:50)
[2018-05-23] MEDS: amLODIPine 5 MG TABLET PO SCH (08:50)
[2018-05-23] MEDS ORDERED: MULTIVITAMIN (BEROCCA) TABLET PO SCH (09:00)
[2018-05-23 11:57] VITALS: BP 188/89
== END 2018-05-23 11:40 | DRG 252 ==
LOC: EDUNIT# → EDBD → N.ED 13:44 → SUATTDRO 16:56 → N.EDINP 16:56 → N.3E 19:31
PROVIDERS: ADMIT Internal Medicine; ATTEND Internal Medicine Cardiovascular Disease

== ENCOUNTER 2018-05-28 14:39 | Inpatient (IN) ==
[2018-05-28] MEDS ORDERED: GLUCAGON 1 MG VIAL IM PRN (14:42)
[2018-05-28] MEDS ORDERED: ACETAMINOPHEN 325 MG TABLET PO PRN (14:42)
[2018-05-28] MEDS ORDERED: ONDANSETRON 4 MG/2 ML VIAL IV PRN (14:42)
[2018-05-28] MEDS ORDERED: MORPHINE 4 MG/1 ML VIAL IV PRN ×2 (14:42)
[2018-05-28] MEDS ORDERED: ALBUTEROL/IPRATROPIUM 3 ML NEB RESP TX PRN (14:42)
[2018-05-28] MEDS ORDERED: DEXTROSE 50% 25 GM/50 ML SYRINGE IV PRN (14:42)
[2018-05-28] MEDS ORDERED: BISACODYL 5 MG TABLET PO PRN (14:42)
[2018-05-28 16:19] LABS: Basophils % 0.5 % (0.0-0.8); Eosinophils # 0.4 10*3/uL (0.0-0.87); Eosinophils % 6.2 % (0.00-10.9); Hematocrit 33.4 VOL% (35.7-47.0); Hemoglobin 10.3 GM/DL (12.0-16.0); Immature Granulocytes % 0.4 %; Immature Granulocytes Absolute 0.02 #; Lymphocytes # 1.2 10*3/uL (1.4-4.0); Lymphocytes % 21.7 % (21.3-54.2); Mean Corpuscular HGB Conc 30.8 GM/DL (32-36); Mean Corpuscular Hemoglobin 29 PG (27-34); Mean Platelet Volume 10.6 FL (9.6-12.0); Monocytes # 0.6 10*3/uL (0.11-0.8); Monocytes % 10.5 % (1.7-12.7); Neutrophils # 3.4 10*3/uL (1.4-7.4); Neutrophils % 60.7 % (38.7-73.9); Platelet Count 129 T/CUMM (130-400); Red Blood Count 3.59 MC/CUMM (3.8-5.5); Red Cell Distribution Width 15.2 % (9.3-17.3); White Blood Count 5.6 T/CUMM (4-12)
[2018-05-28 16:37] LABS: Calcium 8.8 MG/DL (8.5-10.1); Osmolality,Calculated 301.5 MOS/KG (273-304); Potassium 4.9 MMOL/L (3.5-5.1)
[2018-05-28] MEDS: INSULIN LISPRO 100 UNIT/ML SUBCUT SCH (17:57)
[2018-05-28] MEDS ORDERED: VANCOMYCIN INJ 750 MG in SODIUM CHLORIDE 0.9% 250 ML IV PRN (19:47)
[2018-05-28] MEDS ORDERED: VANCOMYCIN INJ 2,250 MG in SODIUM CHLORIDE 0.9% 500 ML IV ONE (21:00)
[2018-05-28] MEDS ORDERED: POLYETHYLENE GLYCOL POWDER 17 GM PACK PO PRN (22:25)
[2018-05-28] MEDS: ESCITALOPRAM 10 MG TABLET PO SCH (22:40)
[2018-05-28] MEDS: NEBIVOLOL 5 MG TABLET PO SCH (22:40)
[2018-05-28] MEDS: DOXAZOSIN 1 MG TABLET PO SCH (22:40)
[2018-05-28] MEDS: ATORVASTATIN 20 MG TABLET PO SCH (22:41)
[2018-05-28] MEDS ORDERED: DOCUSATE/SENNA 50-8.6 MG TABLET PO PRN (22:43)
[2018-05-28] MEDS: ASPIRIN EC 81 MG TABLET PO SCH (23:31)
[2018-05-29] MEDS: INSULIN LISPRO 100 UNIT/ML SUBCUT SCH ×3 (07:35→18:27)
[2018-05-29] MEDS: DOXAZOSIN 1 MG TABLET PO SCH ×3 (07:35→20:55)
[2018-05-29] MEDS: amLODIPine 5 MG TABLET PO SCH (07:35)
[2018-05-29] MEDS ORDERED: LIDOCAINE 1%/EPI INJ 20 ML VIAL ONE (07:59)
[2018-05-29] MEDS: SODIUM CHLORIDE 0.9% 250 ML IV SCH ×2 (08:07→20:53)
[2018-05-29] MEDS: SEVELAMER CARBONATE 800 MG TABLET PO SCH ×3 (08:23→18:38)
[2018-05-29] MEDS: MULTIVITAMIN (BEROCCA) TABLET PO SCH (09:39)
[2018-05-29] MEDS: PANTOPRAZOLE 40 MG TABLET PO SCH (09:40)
[2018-05-29] MEDS ORDERED: SEVOFLURANE 1 UNIT/15 MINUTE INH ONE (10:03)
[2018-05-29] MEDS ORDERED: PROPOFOL 200 MG/20 ML VIAL IV ONE (10:03)
[2018-05-29] MEDS ORDERED: ONDANSETRON 4 MG/2 ML VIAL ONE (10:04)
[2018-05-29] MEDS ORDERED: SUCCINYLCHOLINE 200 MG/10 ML VIAL ONE (10:04)
[2018-05-29] MEDS ORDERED: fentaNYL 100 MCG/2 ML VIAL ONE ×2 (10:04→10:07)
[2018-05-29] MEDS ORDERED: ePHEDrine 50 MG/ML AMP ONE (10:04)
[2018-05-29] MEDS ORDERED: ROCURONIUM 100 MG/10 ML VIAL IV ONE (10:04)
[2018-05-29] MEDS ORDERED: GLUCAGON 1 MG VIAL IM PRN (12:18)
[2018-05-29] MEDS ORDERED: DEXTROSE 50% 25 GM/50 ML SYRINGE IV PRN (12:18)
[2018-05-29] MEDS: ZINC OXIDE PASTE 113 GM TUBE TOP SCH ×2 (15:00→22:05)
[2018-05-29] MEDS ORDERED: HEPARIN 10,000 UNIT/10 ML VIAL IV PRN (16:46)
[2018-05-29] MEDS ORDERED: VANCOMYCIN INJ 750 MG in SODIUM CHLORIDE 0.9% 250 ML IV ONE (17:00)
[2018-05-29] MEDS: NEBIVOLOL 5 MG TABLET PO SCH (20:55)
[2018-05-29] MEDS: ASPIRIN EC 81 MG TABLET PO SCH (20:55)
[2018-05-29] MEDS: ATORVASTATIN 20 MG TABLET PO SCH (20:55)
[2018-05-29] MEDS: ESCITALOPRAM 10 MG TABLET PO SCH (20:55)
[2018-05-30] MEDS: SEVELAMER CARBONATE 800 MG TABLET PO SCH ×3 (09:00→17:55)
[2018-05-30] MEDS: INSULIN LISPRO 100 UNIT/ML SUBCUT SCH ×3 (09:00→17:56)
[2018-05-30] MEDS: MULTIVITAMIN (BEROCCA) TABLET PO SCH (09:02)
[2018-05-30] MEDS: amLODIPine 5 MG TABLET PO SCH (09:03)
[2018-05-30] MEDS: PANTOPRAZOLE 40 MG TABLET PO SCH (09:03)
[2018-05-30] MEDS: ZINC OXIDE PASTE 113 GM TUBE TOP SCH ×2 (09:03→22:02)
[2018-05-30] MEDS: DOXAZOSIN 1 MG TABLET PO SCH ×2 (09:03→22:01)
[2018-05-30] MEDS ORDERED: GENTAMICIN INJ 100 MG in PREMIX 1 EACH IV PRN (10:31)
[2018-05-30] MEDS: SODIUM CHLORIDE 0.9% 250 ML IV SCH (12:19)
[2018-05-30] MEDS ORDERED: GENTAMICIN INJ 100 MG in PREMIX 1 EACH IV ONE (13:00)
[2018-05-30] MEDS: ESCITALOPRAM 10 MG TABLET PO SCH (22:01)
[2018-05-30] MEDS: ATORVASTATIN 20 MG TABLET PO SCH (22:01)
[2018-05-30] MEDS: NEBIVOLOL 5 MG TABLET PO SCH (22:01)
[2018-05-30] MEDS: ASPIRIN EC 81 MG TABLET PO SCH (22:01)
[2018-05-31] MEDS: SODIUM CHLORIDE 0.9% 250 ML IV SCH ×2 (01:51→15:57)
[2018-05-31] MEDS: SEVELAMER CARBONATE 800 MG TABLET PO SCH ×3 (08:32→18:37)
[2018-05-31] MEDS: DOXAZOSIN 1 MG TABLET PO SCH ×2 (08:32→20:41)
[2018-05-31] MEDS: MULTIVITAMIN (BEROCCA) TABLET PO SCH (08:32)
[2018-05-31] MEDS: amLODIPine 5 MG TABLET PO SCH (08:33)
[2018-05-31] MEDS: INSULIN LISPRO 100 UNIT/ML SUBCUT SCH ×3 (08:33→18:00)
[2018-05-31] MEDS: PANTOPRAZOLE 40 MG TABLET PO SCH (08:33)
[2018-05-31] MEDS: ZINC OXIDE PASTE 113 GM TUBE TOP SCH ×2 (08:34→20:42)
[2018-05-31] MEDS ORDERED: GENTAMICIN INJ 100 MG in PREMIX 1 EACH IV ONE (17:00)
[2018-05-31] MEDS: ESCITALOPRAM 10 MG TABLET PO SCH (20:41)
[2018-05-31] MEDS: NEBIVOLOL 5 MG TABLET PO SCH (20:41)
[2018-05-31] MEDS: ASPIRIN EC 81 MG TABLET PO SCH (20:42)
[2018-05-31] MEDS: ATORVASTATIN 20 MG TABLET PO SCH (20:42)
[2018-06-01] MEDS: SODIUM CHLORIDE 0.9% 250 ML IV SCH ×3 (01:24→23:21)
[2018-06-01] MEDS: INSULIN LISPRO 100 UNIT/ML SUBCUT SCH ×3 (08:28→16:46)
[2018-06-01] MEDS: SEVELAMER CARBONATE 800 MG TABLET PO SCH ×3 (09:00→16:46)
[2018-06-01] MEDS: DOXAZOSIN 1 MG TABLET PO SCH ×2 (09:01→21:00)
[2018-06-01] MEDS: MULTIVITAMIN (BEROCCA) TABLET PO SCH (09:01)
[2018-06-01] MEDS: amLODIPine 5 MG TABLET PO SCH (09:02)
[2018-06-01] MEDS: PANTOPRAZOLE 40 MG TABLET PO SCH (09:02)
[2018-06-01] MEDS: ZINC OXIDE PASTE 113 GM TUBE TOP SCH ×2 (09:02→21:00)
[2018-06-01] MEDS: NEBIVOLOL 5 MG TABLET PO SCH (20:59)
[2018-06-01] MEDS: ATORVASTATIN 20 MG TABLET PO SCH (20:59)
[2018-06-01] MEDS: ASPIRIN EC 81 MG TABLET PO SCH (21:00)
[2018-06-01] MEDS: ESCITALOPRAM 10 MG TABLET PO SCH (21:00)
[2018-06-02] MEDS: ZINC OXIDE PASTE 113 GM TUBE TOP SCH (09:40)
[2018-06-02] MEDS: SEVELAMER CARBONATE 800 MG TABLET PO SCH (09:41)
[2018-06-02] MEDS: MULTIVITAMIN (BEROCCA) TABLET PO SCH (09:42)
[2018-06-02] MEDS: amLODIPine 5 MG TABLET PO SCH (09:42)
[2018-06-02] MEDS: PANTOPRAZOLE 40 MG TABLET PO SCH (09:42)
[2018-06-02] MEDS: INSULIN LISPRO 100 UNIT/ML SUBCUT SCH (09:43)
[2018-06-02] MEDS: DOXAZOSIN 1 MG TABLET PO SCH (09:43)
[2018-06-02 11:34] VITALS: BP 167/61
== END 2018-06-02 11:50 | disposition swing bed (61) | DRG 264 ==
LOC: N.3E 15:11
PROVIDERS: ADMIT Surgery; ATTEND Surgery

== ENCOUNTER 2018-08-11 11:45 | Inpatient (IN) ==
[2018-08-11 13:01] LABS: Basophils % 0.4 % (0.0-0.8); Eosinophils # 0.5 10*3/uL (0.0-0.87); Eosinophils % 7.2 % (0.00-10.9); Hematocrit 35.2 VOL% (35.7-47.0); Hemoglobin 10.7 GM/DL (12.0-16.0); Immature Granulocytes % 0.5 %; Immature Granulocytes Absolute 0.04 #; Lymphocytes # 1.2 10*3/uL (1.4-4.0); Lymphocytes % 16.6 % (21.3-54.2); Mean Corpuscular HGB Conc 30.4 GM/DL (32-36); Mean Corpuscular Volume 88.2 FL (87-102); Mean Platelet Volume 10.5 FL (9.6-12.0); Monocytes % 10.2 % (1.7-12.7); Neutrophils % 65.1 % (38.7-73.9); Platelet Count 151 T/CUMM (130-400); Red Blood Count 3.99 MC/CUMM (3.8-5.5); Red Cell Distribution Width 15.9 % (9.3-17.3); White Blood Count 7.5 T/CUMM (4-12)
[2018-08-11 13:18] LABS: Calcium 9.4 MG/DL (8.5-10.1); Osmolality,Calculated 291.5 MOS/KG (273-304)
[2018-08-11] MEDS ORDERED: LEVOFLOXACIN INJ 750 MG in PREMIX 1 EACH IV ONE (13:41)
[2018-08-11] MEDS ORDERED: metroNIDAZOLE INJ 500 MG in PREMIX 1 EACH IV ONE (13:41)
[2018-08-11] MEDS ORDERED: ALBUTEROL/IPRATROPIUM 3 ML NEB RESP TX PRN (14:00)
[2018-08-11] MEDS ORDERED: HYDROmorphone 2 MG/1 ML VIAL IV PRN (14:00)
[2018-08-11] MEDS ORDERED: ONDANSETRON 4 MG/2 ML VIAL IV PRN (14:00)
[2018-08-11] MEDS ORDERED: ACETAMINOPHEN 325 MG TABLET PO PRN (14:00)
[2018-08-11] MEDS ORDERED: hydrALAZINE 20 MG/1 ML VIAL ONE (14:21)
[2018-08-11] MEDS ORDERED: hydrALAZINE 20 MG/1 ML VIAL IV STA (14:30)
[2018-08-11] MEDS ORDERED: GLUCAGON 1 MG VIAL IM PRN (15:22)
[2018-08-11] MEDS ORDERED: DEXTROSE 50% 25 GM/50 ML VIAL IV PRN (15:22)
[2018-08-11] MEDS ORDERED: hydrALAZINE 20 MG/1 ML VIAL IV PRN (16:57)
[2018-08-11] MEDS ORDERED: cloNIDine 0.1 MG TABLET PO ONE (17:02)
[2018-08-11] MEDS ORDERED: cloNIDine 0.1 MG TABLET ONE (17:03)
[2018-08-11] MEDS: INSULIN REGULAR 100 UNIT/ML SUBCUT SCH (18:00)
[2018-08-11] MEDS: SEVELAMER CARBONATE 800 MG TABLET PO SCH (18:08)
[2018-08-11] MEDS: DOXAZOSIN 1 MG TABLET PO SCH (23:05)
[2018-08-11] MEDS: ASPIRIN EC 81 MG TABLET PO SCH (23:05)
[2018-08-11] MEDS: ATORVASTATIN 20 MG TABLET PO SCH (23:05)
[2018-08-11] MEDS: NEBIVOLOL 5 MG TABLET PO SCH (23:05)
[2018-08-11] MEDS: ESCITALOPRAM 10 MG TABLET PO SCH (23:05)
[2018-08-12] MEDS: INSULIN REGULAR 100 UNIT/ML SUBCUT SCH ×4 (02:29→18:31)
[2018-08-12 04:50] LABS: Basophils % 0.6 % (0.0-0.8); Eosinophils # 0.4 10*3/uL (0.0-0.87); Eosinophils % 6.3 % (0.00-10.9); Hematocrit 32.1 VOL% (35.7-47.0); Hemoglobin 9.9 GM/DL (12.0-16.0); Immature Granulocytes % 0.4 %; Immature Granulocytes Absolute 0.03 #; Lymphocytes # 1.1 10*3/uL (1.4-4.0); Lymphocytes % 16.4 % (21.3-54.2); Mean Corpuscular HGB Conc 30.8 GM/DL (32-36); Mean Corpuscular Volume 87.9 FL (87-102); Neutrophils % 67.3 % (38.7-73.9); Platelet Count 143 T/CUMM (130-400); Red Blood Count 3.65 MC/CUMM (3.8-5.5); Red Cell Distribution Width 15.9 % (9.3-17.3); White Blood Count 6.9 T/CUMM (4-12)
[2018-08-12 05:20] LABS: Albumin 2.9 G/DL (3.4-5.0); Bilirubin,Total 0.8 MG/DL (0.2-1.0); Calcium 9.3 MG/DL (8.5-10.1); Osmolality,Calculated 293.5 MOS/KG (273-304); Total Protein 6.1 G/DL (6.4-8.3)
[2018-08-12] MEDS ORDERED: LEVOFLOXACIN INJ 150 ML IV ONE (07:04)
[2018-08-12] MEDS ORDERED: PROPOFOL 200 MG/20 ML VIAL IV ONE (08:33)
[2018-08-12] MEDS ORDERED: ROCURONIUM 100 MG/10 ML VIAL IV ONE (08:34)
[2018-08-12] MEDS ORDERED: NEOSTIGMINE 10 MG/10 ML VIAL ONE (08:34)
[2018-08-12] MEDS ORDERED: DESFLURANE 1 UNIT/15 MINUTE INH ONE (08:34)
[2018-08-12] MEDS ORDERED: GLYCOPYRROLATE 0.4 MG/2 ML VIAL ONE (08:34)
[2018-08-12] MEDS ORDERED: MIDAZOLAM 2 MG/2 ML VIAL ONE (08:34)
[2018-08-12] MEDS ORDERED: fentaNYL 100 MCG/2 ML VIAL ONE (08:34)
[2018-08-12] MEDS: metroNIDAZOLE INJ 500 MG in PREMIX 1 EACH IV SCH ×2 (10:43→18:29)
[2018-08-12] MEDS: DOXAZOSIN 1 MG TABLET PO SCH ×2 (11:54→21:48)
[2018-08-12] MEDS: BISACODYL 5 MG TABLET PO SCH (11:54)
[2018-08-12] MEDS: SEVELAMER CARBONATE 800 MG TABLET PO SCH ×3 (11:54→18:18)
[2018-08-12] MEDS ORDERED: EPOETIN ALFA 2,000 UNIT/1 ML VIAL IV ONE (14:38)
[2018-08-12] MEDS ORDERED: EPOETIN ALFA 2,000 UNIT/1 ML VIAL IV PRN (14:38)
[2018-08-12] MEDS: amLODIPine 5 MG TABLET PO SCH (14:59)
[2018-08-12] MEDS: PANTOPRAZOLE 40 MG TABLET PO SCH (15:00)
[2018-08-12] MEDS ORDERED: HEPARIN 10,000 UNIT/10 ML VIAL IV SCH (16:30)
[2018-08-12] MEDS: ESCITALOPRAM 10 MG TABLET PO SCH (21:48)
[2018-08-12] MEDS: ASPIRIN EC 81 MG TABLET PO SCH (21:48)
[2018-08-12] MEDS: ATORVASTATIN 20 MG TABLET PO SCH (21:48)
[2018-08-12] MEDS: NEBIVOLOL 5 MG TABLET PO SCH (21:48)
[2018-08-13] MEDS: metroNIDAZOLE INJ 500 MG in PREMIX 1 EACH IV SCH ×3 (02:04→17:42)
[2018-08-13 05:29] LABS: Albumin 2.9 G/DL (3.4-5.0); Bilirubin,Total 0.6 MG/DL (0.2-1.0); Osmolality,Calculated 287.5 MOS/KG (273-304); Total Protein 6.4 G/DL (6.4-8.3)
[2018-08-13] MEDS: INSULIN REGULAR 100 UNIT/ML SUBCUT SCH ×4 (06:00→18:37)
[2018-08-13] MEDS ORDERED: BISACODYL 10 MG SUPP RECTAL ONE (08:33)
[2018-08-13] MEDS ORDERED: LEVOFLOXACIN INJ 500 MG in PREMIX 1 EACH IV SCH (09:00)
[2018-08-13] MEDS: BISACODYL 5 MG TABLET PO SCH (09:28)
[2018-08-13] MEDS: DOXAZOSIN 1 MG TABLET PO SCH ×2 (09:28→20:52)
[2018-08-13] MEDS: PANTOPRAZOLE 40 MG TABLET PO SCH (09:28)
[2018-08-13] MEDS: amLODIPine 5 MG TABLET PO SCH (09:28)
[2018-08-13] MEDS: SEVELAMER CARBONATE 800 MG TABLET PO SCH ×4 (10:44→17:41)
[2018-08-13] MEDS ORDERED: SIMETHICONE CHEW 125 MG TABLET PO PRN (11:51)
[2018-08-13] MEDS: ASPIRIN EC 81 MG TABLET PO SCH (20:52)
[2018-08-13] MEDS: ESCITALOPRAM 10 MG TABLET PO SCH (20:52)
[2018-08-13] MEDS: ATORVASTATIN 20 MG TABLET PO SCH (20:53)
[2018-08-13] MEDS: NEBIVOLOL 5 MG TABLET PO SCH (20:53)
[2018-08-14] MEDS: INSULIN REGULAR 100 UNIT/ML SUBCUT SCH ×3 (02:22→14:06)
[2018-08-14] MEDS: metroNIDAZOLE INJ 500 MG in PREMIX 1 EACH IV SCH ×3 (02:23→19:06)
[2018-08-14 05:18] LABS: Albumin 2.8 G/DL (3.4-5.0); Bilirubin,Total 1.3 MG/DL (0.2-1.0); Osmolality,Calculated 295.4 MOS/KG (273-304); Total Protein 6.1 G/DL (6.4-8.3)
[2018-08-14] MEDS: amLODIPine 5 MG TABLET PO SCH (08:04)
[2018-08-14] MEDS: BISACODYL 5 MG TABLET PO SCH (08:04)
[2018-08-14] MEDS: SEVELAMER CARBONATE 800 MG TABLET PO SCH ×3 (08:04→18:13)
[2018-08-14] MEDS: DOXAZOSIN 1 MG TABLET PO SCH (08:04)
[2018-08-14] MEDS: PANTOPRAZOLE 40 MG TABLET PO SCH (08:04)
[2018-08-14 18:12] VITALS: BP 177/46
== END 2018-08-14 18:00 | disposition home health service (06) | DRG 570 ==
LOC: EDBD → EDUNIT# → N.ED 11:45 → N.EDINP 13:21 → SUATTDRO 13:21 → N.5E 15:44
PROVIDERS: ADMIT Internal Medicine; ATTEND Hospitalist

== ENCOUNTER 2019-09-26 11:05 | Inpatient (IN) ==
[2019-09-26 12:27] LABS: Basophils % 0.3 % (0.0-0.8); Eosinophils # 0.1 10*3/uL (0.0-0.87); Eosinophils % 2.4 % (0.00-10.9); Hematocrit 27.2 VOL% (35.7-47.0); Hemoglobin 8.9 GM/DL (12.0-16.0); Immature Granulocytes Absolute 0.06 #; Lymphocytes # 0.8 10*3/uL (1.4-4.0); Lymphocytes % 13.8 % (21.3-54.2); Mean Corpuscular HGB Conc 32.7 GM/DL (32-36); Mean Corpuscular Volume 93.2 FL (87-102); Mean Platelet Volume 10.5 FL (9.6-12.0); Monocytes % 3.6 % (1.7-12.7); NRBC # 0.09 10*3/uL; Neutrophils % 78.9 % (38.7-73.9); Platelet Count 143 T/CUMM (130-400); Red Blood Count 2.92 MC/CUMM (3.8-5.5); Red Cell Distribution Width 14.6 % (9.3-17.3); White Blood Count 5.9 T/CUMM (4-12)
[2019-09-26 12:42] LABS: INR 1.3; PT Patient Result 13.7 SECS (9.8-11.9)
[2019-09-26 13:01] LABS: Eosinophils 2 % (0-10); Lymphocytes 11 % (20-55); Metamyelocytes 2 %; Segmented Neutrophils 83 % (50-85); Total Cells Counted 100
[2019-09-26 13:11] LABS: Alanine Aminotransferase 702 U/L (13-56); Alkaline Phosphatase 190 U/L (45-117); Aspartate Amino Transferase 953 U/L (0-37); Blood Urea Nitrogen 75 MG/DL (7-18); Calcium 9.2 MG/DL (8.5-10.1); Estimated Glom Filtration Rate 6 ML/MIN; Glucose 144 MG/DL (74-106); Osmolality,Calculated 292.2 MOS/KG (273-304)
[2019-09-26 13:18] LABS: Sedimentation Rate-Westergren 99 MM/HR (0-30)
[2019-09-26] MEDS ORDERED: FLUTICASONE 50 MCG NASAL SPRAY 16 GM BOTTLE BOTH NARES PRN (14:12)
[2019-09-26] MEDS ORDERED: AZITHROMYCIN INJ 500 MG in SODIUM CHLORIDE 0.9% 250 ML IV ONE (14:15)
[2019-09-26] MEDS ORDERED: ONDANSETRON 4 MG/2 ML VIAL IV PRN (14:17)
[2019-09-26] MEDS ORDERED: GLUCAGON 1 MG VIAL IM PRN (14:17)
[2019-09-26] MEDS ORDERED: ACETAMINOPHEN 325 MG TABLET PO PRN (14:17)
[2019-09-26] MEDS ORDERED: DEXTROSE 50% 25 GM/50 ML VIAL IV PRN (14:17)
[2019-09-26] MEDS ORDERED: cefTRIAXone 1,000 MG in SYRINGE 1 EACH IV SCH (14:30)
[2019-09-26] MEDS ORDERED: HEPARIN 5,000 UNIT/1 ML VIAL SUBCUT SCH (14:30)
[2019-09-26 14:49] LABS: Risk Ratio 2.67; Thyroid Stimulating Hormone 2.24 uIU/ml (0.358-3.74); VLDL CHOLESTEROL 31.8 MG/DL
[2019-09-26] MEDS ORDERED: hydrALAZINE 20 MG/1 ML VIAL IV PRN (14:52)
[2019-09-26] MEDS: DEXAMETHASONE 4 MG/1 ML VIAL IV SCH (15:30)
[2019-09-26] MEDS: HEPARIN 5,000 UNIT/1 ML VIAL SUBCUT SCH (15:43)
[2019-09-26 16:16] LABS: ABG HCO3 28.9 MMOL/L (20-26); ABG Oxygen Saturation 93.5 % (95-100); ABG PCO2 42.1 MM HG (35-48); ABG PH 7.453 (7.35-7.45); ABG PO2 70.6 MM HG (80-95); ABG TCO2 26.8 MMOL/L (23-27)
[2019-09-27] MEDS ORDERED: PIPERACILLIN/TAZOBACTAM 2,250 MG in SODIUM CHLORIDE 0.9% 100 ML IV SCH
[2019-09-27] MEDS: ESCITALOPRAM 10 MG TABLET PO SCH ×2 (00:27→22:26)
[2019-09-27] MEDS: NEBIVOLOL 5 MG TABLET PO SCH ×2 (00:27→22:26)
[2019-09-27] MEDS: HEPARIN 5,000 UNIT/1 ML VIAL SUBCUT SCH ×3 (00:27→16:00)
[2019-09-27] MEDS: ATORVASTATIN 20 MG TABLET PO SCH ×2 (00:28→22:26)
[2019-09-27] MEDS: ASPIRIN EC 81 MG TABLET PO SCH ×2 (00:28→22:33)
[2019-09-27] MEDS: INSULIN LISPRO 100 UNIT/ML SUBCUT SCH ×6 (00:36→22:26)
[2019-09-27] MEDS: INSULIN GLARGINE 100 UNIT/ML SUBCUT SCH ×2 (00:37→22:26)
[2019-09-27 03:45] LABS: Calcium 9.1 MG/DL (8.5-10.1); Osmolality,Calculated 299.2 MOS/KG (273-304)
[2019-09-27 04:32] LABS: Basophils % 0.2 % (0.0-0.8); Eosinophils % 0.2 % (0.00-10.9); Hematocrit 27.6 VOL% (35.7-47.0); Hemoglobin 8.9 GM/DL (12.0-16.0); Immature Granulocytes % 3.8 %; Immature Granulocytes Absolute 0.23 #; Lymphocytes # 0.5 10*3/uL (1.4-4.0); Lymphocytes % 8.1 % (21.3-54.2); Mean Corpuscular HGB Conc 32.2 GM/DL (32-36); Mean Corpuscular Volume 92.6 FL (87-102); Mean Platelet Volume 10.5 FL (9.6-12.0); Monocytes % 3.5 % (1.7-12.7); NRBC # 0.07 10*3/uL; Neutrophils % 84.2 % (38.7-73.9); Platelet Count 140 T/CUMM (130-400); Red Blood Count 2.98 MC/CUMM (3.8-5.5); Red Cell Distribution Width 14.4 % (9.3-17.3); White Blood Count 6.1 T/CUMM (4-12)
[2019-09-27 05:10] LABS: Anisocytosis 1+; Platelet Estimate Adequate
[2019-09-27] MEDS ORDERED: AZITHROMYCIN INJ 250 MG in SODIUM CHLORIDE 0.9% 250 ML IV SCH (09:00)
[2019-09-27] MEDS ORDERED: amLODIPine 5 MG TABLET PO SCH (09:00)
[2019-09-27] MEDS ORDERED: cloNIDine 0.2 MG/24 HR PATCH TRANSDERM SCH (10:00)
[2019-09-27] MEDS ORDERED: AZITHROMYCIN 250 MG TABLET ONE (10:30)
[2019-09-27] MEDS ORDERED: amLODIPine 10 MG TABLET ONE (10:30)
[2019-09-27] MEDS ORDERED: cloNIDine 0.1 MG/24 HR PATCH TRANSDERM ONE ×2 (10:31→10:34)
[2019-09-27] MEDS ORDERED: PANTOPRAZOLE 40 MG TABLET PO ONE (10:31)
[2019-09-27] MEDS ORDERED: HEPARIN 5,000 UNIT/1 ML VIAL ONE ×2 (10:31→15:57)
[2019-09-27] MEDS: AZITHROMYCIN 250 MG TABLET PO SCH (10:41)
[2019-09-27] MEDS: amLODIPine 10 MG TABLET PO SCH (10:41)
[2019-09-27] MEDS: PANTOPRAZOLE 40 MG TABLET PO SCH (10:41)
[2019-09-27] MEDS ORDERED: INSULIN LISPRO 100 UNIT/ML ONE ×2 (11:00→16:14)
[2019-09-27] MEDS: ZINC GLUCONATE 50 MG TABLET PO SCH (12:10)
[2019-09-27] MEDS: SEVELAMER CARBONATE 800 MG TABLET PO SCH ×3 (12:10→19:45)
[2019-09-27] MEDS ORDERED: SODIUM CHLORIDE 0.9% 100 ML IV ONE (13:09)
[2019-09-27] MEDS ORDERED: PIPERACILLIN/TAZOBACTAM 3,375 MG VIAL IV ONE (13:09)
[2019-09-27] MEDS: PIPERACILLIN/TAZOBACTAM 3,375 MG in SODIUM CHLORIDE 0.9% 100 ML IV SCH (13:10)
[2019-09-27] MEDS ORDERED: DEXAMETHASONE 10 MG/1 ML VIAL ONE (15:57)
[2019-09-27] MEDS: DEXAMETHASONE 4 MG/1 ML VIAL IV SCH (15:58)
[2019-09-28] MEDS ORDERED: PIPERACILLIN/TAZOBACTAM 3,375 MG VIAL IV ONE (00:31)
[2019-09-28] MEDS: PIPERACILLIN/TAZOBACTAM 3,375 MG in SODIUM CHLORIDE 0.9% 100 ML IV SCH ×3 (00:48→23:45)
[2019-09-28] MEDS: HEPARIN 5,000 UNIT/1 ML VIAL SUBCUT SCH ×4 (00:48→22:41)
[2019-09-28 04:13] LABS: Basophils % 0.2 % (0.0-0.8); Eosinophils % 0.2 % (0.00-10.9); Hematocrit 28.2 VOL% (35.7-47.0); Hemoglobin 9.4 GM/DL (12.0-16.0); Immature Granulocytes % 2.4 %; Immature Granulocytes Absolute 0.13 #; Lymphocytes # 0.4 10*3/uL (1.4-4.0); Lymphocytes % 8.3 % (21.3-54.2); Mean Corpuscular HGB Conc 33.3 GM/DL (32-36); Mean Corpuscular Volume 89.2 FL (87-102); Mean Platelet Volume 10.5 FL (9.6-12.0); Monocytes % 2.3 % (1.7-12.7); NRBC # 0.06 10*3/uL; Neutrophils % 86.6 % (38.7-73.9); Platelet Count 139 T/CUMM (130-400); Red Blood Count 3.16 MC/CUMM (3.8-5.5); Red Cell Distribution Width 14.1 % (9.3-17.3); White Blood Count 5.3 T/CUMM (4-12)
[2019-09-28 04:24] LABS: Calcium 9.6 MG/DL (8.5-10.1); Osmolality,Calculated 306.2 MOS/KG (273-304)
[2019-09-28] MEDS: INSULIN LISPRO 100 UNIT/ML SUBCUT SCH ×4 (07:20→21:08)
[2019-09-28] MEDS: amLODIPine 10 MG TABLET PO SCH (10:25)
[2019-09-28] MEDS: AZITHROMYCIN 250 MG TABLET PO SCH (10:25)
[2019-09-28] MEDS: SEVELAMER CARBONATE 800 MG TABLET PO SCH ×3 (10:25→18:37)
[2019-09-28] MEDS: PANTOPRAZOLE 40 MG TABLET PO SCH (10:25)
[2019-09-28] MEDS: ZINC GLUCONATE 50 MG TABLET PO SCH (11:57)
[2019-09-28] MEDS: DEXAMETHASONE 4 MG/1 ML VIAL IV SCH (14:40)
[2019-09-28 16:36] LABS: ABG Base Excess 3.6 MMOL/L (-2.5-2.5); ABG HCO3 27.7 MMOL/L (20-26); ABG Oxygen Saturation 96.6 % (95-100); ABG PCO2 37.3 MM HG (35-48); ABG PH 7.472 (7.35-7.45); ABG TCO2 24.8 MMOL/L (23-27)
[2019-09-28 19:26] LABS: Basophils % 0.2 % (0.0-0.8); Hematocrit 29.9 VOL% (35.7-47.0); Hemoglobin 9.9 GM/DL (12.0-16.0); Immature Granulocytes % 1.9 %; Immature Granulocytes Absolute 0.15 #; Lymphocytes # 0.3 10*3/uL (1.4-4.0); Lymphocytes % 4.2 % (21.3-54.2); Mean Corpuscular HGB Conc 33.1 GM/DL (32-36); Mean Platelet Volume 10.3 FL (9.6-12.0); Monocytes % 1.4 % (1.7-12.7); Neutrophils % 92.3 % (38.7-73.9); Platelet Count 151 T/CUMM (130-400); Red Blood Count 3.36 MC/CUMM (3.8-5.5); Red Cell Distribution Width 14.4 % (9.3-17.3)
[2019-09-28 21:04] LABS: Hypochromasia 3+; Lymphocytes 1 % (20-55); Microcytosis 1+; Nucleated Red Blood Cells 1 (0-5); Segmented Neutrophils 99 % (50-85); Total Cells Counted 100
[2019-09-28] MEDS: INSULIN GLARGINE 100 UNIT/ML SUBCUT SCH (21:07)
[2019-09-28] MEDS: NEBIVOLOL 5 MG TABLET PO SCH (21:08)
[2019-09-28] MEDS: ATORVASTATIN 20 MG TABLET PO SCH (21:08)
[2019-09-28] MEDS: ASCORBIC ACID 500 MG TABLET PO SCH (21:08)
[2019-09-28] MEDS: ESCITALOPRAM 10 MG TABLET PO SCH (21:08)
[2019-09-28] MEDS: ASPIRIN EC 81 MG TABLET PO SCH (21:08)
[2019-09-29] MEDS: HEPARIN 5,000 UNIT/1 ML VIAL SUBCUT SCH ×3 (06:27→21:30)
[2019-09-29 06:47] LABS: Basophils % 0.1 % (0.0-0.8); Hematocrit 28.6 VOL% (35.7-47.0); Hemoglobin 9.3 GM/DL (12.0-16.0); Immature Granulocytes % 2.7 %; Immature Granulocytes Absolute 0.19 #; Lymphocytes # 0.5 10*3/uL (1.4-4.0); Lymphocytes % 7.4 % (21.3-54.2); Mean Corpuscular HGB Conc 32.5 GM/DL (32-36); Mean Corpuscular Volume 92.3 FL (87-102); Mean Platelet Volume 10.3 FL (9.6-12.0); Monocytes % 3.4 % (1.7-12.7); NRBC # 0.12 10*3/uL; Neutrophils % 86.4 % (38.7-73.9); Platelet Count 174 T/CUMM (130-400); Red Cell Distribution Width 14.4 % (9.3-17.3)
[2019-09-29 06:58] LABS: Albumin 2.9 G/DL (3.4-5.0); Bilirubin,Total 0.7 MG/DL (0.2-1.0); Calcium 9.4 MG/DL (8.5-10.1); Osmolality,Calculated 300.2 MOS/KG (273-304); Total Protein 6.9 G/DL (6.4-8.3)
[2019-09-29 07:10] LABS: Osmolality,Calculated 304.1 MOS/KG (273-304)
[2019-09-29] MEDS: AZITHROMYCIN 250 MG TABLET PO SCH (08:54)
[2019-09-29] MEDS: amLODIPine 10 MG TABLET PO SCH (08:54)
[2019-09-29] MEDS: SEVELAMER CARBONATE 800 MG TABLET PO SCH ×3 (08:54→16:03)
[2019-09-29] MEDS: ASCORBIC ACID 500 MG TABLET PO SCH ×2 (08:54→21:30)
[2019-09-29] MEDS: ZINC GLUCONATE 50 MG TABLET PO SCH (08:54)
[2019-09-29] MEDS: INSULIN LISPRO 100 UNIT/ML SUBCUT SCH ×4 (08:55→21:30)
[2019-09-29] MEDS: PIPERACILLIN/TAZOBACTAM 3,375 MG in SODIUM CHLORIDE 0.9% 100 ML IV SCH (11:58)
[2019-09-29] MEDS: DEXAMETHASONE 4 MG/1 ML VIAL IV SCH (11:58)
[2019-09-29] MEDS: NEBIVOLOL 5 MG TABLET PO SCH (21:30)
[2019-09-29] MEDS: ASPIRIN EC 81 MG TABLET PO SCH (21:30)
[2019-09-29] MEDS: ESCITALOPRAM 10 MG TABLET PO SCH (21:30)
[2019-09-29] MEDS: ATORVASTATIN 20 MG TABLET PO SCH (21:30)
[2019-09-29] MEDS: INSULIN GLARGINE 100 UNIT/ML SUBCUT SCH (21:30)
[2019-09-30] MEDS: PIPERACILLIN/TAZOBACTAM 3,375 MG in SODIUM CHLORIDE 0.9% 100 ML IV SCH ×2 (00:50→13:28)
[2019-09-30] MEDS: HEPARIN 5,000 UNIT/1 ML VIAL SUBCUT SCH ×3 (05:45→22:42)
[2019-09-30] MEDS: amLODIPine 10 MG TABLET PO SCH (08:33)
[2019-09-30] MEDS: ZINC GLUCONATE 50 MG TABLET PO SCH (08:33)
[2019-09-30] MEDS: ASCORBIC ACID 500 MG TABLET PO SCH ×2 (08:33→21:49)
[2019-09-30] MEDS: SEVELAMER CARBONATE 800 MG TABLET PO SCH ×3 (08:33→16:28)
[2019-09-30] MEDS: AZITHROMYCIN 250 MG TABLET PO SCH (08:34)
[2019-09-30] MEDS: INSULIN LISPRO 100 UNIT/ML SUBCUT SCH ×4 (08:34→21:51)
[2019-09-30] MEDS: DEXAMETHASONE 4 MG/1 ML VIAL IV SCH (08:35)
[2019-09-30] MEDS: NEBIVOLOL 5 MG TABLET PO SCH (21:49)
[2019-09-30] MEDS: ASPIRIN EC 81 MG TABLET PO SCH (21:49)
[2019-09-30] MEDS: ESCITALOPRAM 10 MG TABLET PO SCH (21:49)
[2019-09-30] MEDS: INSULIN GLARGINE 100 UNIT/ML SUBCUT SCH (21:50)
[2019-09-30] MEDS: ATORVASTATIN 20 MG TABLET PO SCH (21:56)
[2019-10-01] MEDS: PIPERACILLIN/TAZOBACTAM 3,375 MG in SODIUM CHLORIDE 0.9% 100 ML IV SCH (00:53)
[2019-10-01] MEDS: HEPARIN 5,000 UNIT/1 ML VIAL SUBCUT SCH (06:07)
[2019-10-01 06:54] LABS: Basophils % 0.1 % (0.0-0.8); Eosinophils # 0.5 10*3/uL (0.0-0.87); Eosinophils % 4.9 % (0.00-10.9); Hematocrit 28.7 VOL% (35.7-47.0); Hemoglobin 9.4 GM/DL (12.0-16.0); Immature Granulocytes % 1.8 %; Immature Granulocytes Absolute 0.19 #; Lymphocytes # 0.7 10*3/uL (1.4-4.0); Lymphocytes % 6.9 % (21.3-54.2); Mean Corpuscular HGB Conc 32.8 GM/DL (32-36); Mean Platelet Volume 10.4 FL (9.6-12.0); Monocytes % 3.4 % (1.7-12.7); NRBC # 0.05 10*3/uL; Neutrophils % 82.9 % (38.7-73.9); Platelet Count 149 T/CUMM (130-400); Red Blood Count 3.19 MC/CUMM (3.8-5.5); Red Cell Distribution Width 14.4 % (9.3-17.3); White Blood Count 10.6 T/CUMM (4-12)
[2019-10-01 07:07] LABS: Osmolality,Calculated 285.4 MOS/KG (273-304)
[2019-10-01] MEDS: INSULIN LISPRO 100 UNIT/ML SUBCUT SCH (07:32)
[2019-10-01] MEDS: ASCORBIC ACID 500 MG TABLET PO SCH (08:15)
[2019-10-01] MEDS: SEVELAMER CARBONATE 800 MG TABLET PO SCH (08:15)
[2019-10-01] MEDS: ZINC GLUCONATE 50 MG TABLET PO SCH (08:15)
[2019-10-01] MEDS: amLODIPine 10 MG TABLET PO SCH (08:16)
[2019-10-01] MEDS: DEXAMETHASONE 4 MG/1 ML VIAL IV SCH (08:17)
[2019-10-01 11:49] VITALS: BP 116/52
== END 2019-10-01 11:43 | disposition home health service (06) | DRG 177 ==
LOC: EDBD → EDUNIT# → N.ED 11:05 → N.EDINP 14:10 → SUATTDRO 14:10 → N.EDINP 09-28 18:00 → N.2E 09-28 18:40
PROVIDERS: ADMIT Emergency Medicine; ATTEND Internal Medicine

== ENCOUNTER 2020-03-19 07:03 | Observation (INO) ==
[2020-03-19 07:44] LABS: Basophils % 0.6 % (0.0-0.8); Eosinophils # 0.5 10*3/uL (0.0-0.87); Eosinophils % 7.9 % (0.00-10.9); Hematocrit 33.6 VOL% (35.7-47.0); Hemoglobin 10.4 GM/DL (12.0-16.0); Immature Granulocytes % 0.5 %; Immature Granulocytes Absolute 0.03 #; Lymphocytes # 0.9 10*3/uL (1.4-4.0); Lymphocytes % 14.2 % (21.3-54.2); Mean Corpuscular Volume 90.8 FL (87-102); Mean Platelet Volume 10.4 FL (9.6-12.0); Monocytes % 6.5 % (1.7-12.7); Neutrophils % 70.3 % (38.7-73.9); Platelet Count 142 T/CUMM (130-400); Red Cell Distribution Width 17.3 % (9.3-17.3); White Blood Count 6.6 T/CUMM (4-12)
[2020-03-19 08:33] LABS: Alanine Aminotransferase 14 U/L (13-56); Albumin 3.5 G/DL (3.4-5.0); Alkaline Phosphatase 119 U/L (45-117); Aspartate Amino Transferase 12 U/L (0-37); Blood Urea Nitrogen 49 MG/DL (7-18); Calcium 9.5 MG/DL (8.5-10.1); Carbon Dioxide 28 MMOL/L (21-32); Estimated Glom Filtration Rate 9 ML/MIN; Glucose 173 MG/DL (74-106); Osmolality,Calculated 293.5 MOS/KG (273-304); Potassium 3.9 MMOL/L (3.5-5.1); Sodium 139 MMOL/L (136-145); Total Protein 7.1 G/DL (6.4-8.3)
[2020-03-19] MEDS ORDERED: NITROGLYCERIN 2% OINT 1 INCH/GM PACK TOP STA (09:17)
[2020-03-19] MEDS ORDERED: ACETAMINOPHEN 325 MG TABLET PO PRN (09:47)
[2020-03-19] MEDS ORDERED: GLUCAGON 1 MG VIAL IM PRN (09:47)
[2020-03-19] MEDS ORDERED: ONDANSETRON 4 MG/2 ML VIAL IV PRN (09:47)
[2020-03-19] MEDS ORDERED: BISACODYL 5 MG TABLET PO PRN (09:47)
[2020-03-19] MEDS ORDERED: DEXTROSE 50% 25 GM/50 ML VIAL IV PRN (09:47)
[2020-03-19] MEDS ORDERED: guaiFENesin/CODEINE 5 ML LIQUID PO PRN (09:51)
[2020-03-19] MEDS ORDERED: hydrALAZINE 20 MG/1 ML VIAL IV PRN (09:51)
[2020-03-19] MEDS: INSULIN LISPRO 100 UNIT/ML SUBCUT SCH ×3 (11:33→20:58)
[2020-03-19] MEDS: HEPARIN 5,000 UNIT/1 ML VIAL SUBCUT SCH ×2 (11:58→21:06)
[2020-03-19] MEDS: SEVELAMER CARBONATE 800 MG TABLET PO SCH ×2 (11:59→17:32)
[2020-03-19] MEDS ORDERED: ASPIRIN EC 81 MG TABLET PO SCH (21:00)
[2020-03-19] MEDS ORDERED: ATORVASTATIN 20 MG TABLET PO SCH (21:00)
[2020-03-19] MEDS: DOXAZOSIN 1 MG TABLET PO SCH (21:06)
[2020-03-19] MEDS: CEFUROXIME 250 MG TABLET PO SCH (21:06)
[2020-03-20] MEDS: HEPARIN 5,000 UNIT/1 ML VIAL SUBCUT SCH (04:22)
[2020-03-20 06:53] LABS: Osmolality,Calculated 282.8 MOS/KG (273-304); Potassium 3.9 MMOL/L (3.5-5.1)
[2020-03-20] MEDS: CEFUROXIME 250 MG TABLET PO SCH (08:42)
[2020-03-20] MEDS: SEVELAMER CARBONATE 800 MG TABLET PO SCH (08:42)
[2020-03-20] MEDS: DOXAZOSIN 1 MG TABLET PO SCH (08:42)
[2020-03-20] MEDS: INSULIN LISPRO 100 UNIT/ML SUBCUT SCH (08:43)
[2020-03-20] MEDS ORDERED: AZITHROMYCIN 250 MG TABLET PO SCH (09:00)
[2020-03-20] MEDS ORDERED: amLODIPine 5 MG TABLET PO SCH (09:00)
[2020-03-20 11:14] VITALS: BP 148/61
== END 2020-03-20 11:00 | disposition home or self-care (01) ==
LOC: N.ED 07:03 → N.EDINP 07:03 → N.5E 11:00
PROVIDERS: ADMIT Emergency Medicine; ATTEND Emergency Medicine